=== PATIENT | male | born 1990 | race Two or more races ===

== ENCOUNTER 2021-03-10 10:29 | Inpatient (IN) | payer OTHER ==
[2021-03-10 11:29] VITALS: BMI 22.2
[2021-03-10] MEDS ORDERED: ONDANSETRON *ODT* 4 MG TABLET SL PRN (11:42)
[2021-03-10] MEDS ORDERED: cloNIDine HCL 0.1 MG TABLET PO PRN (11:42)
[2021-03-10] MEDS ORDERED: IBUPROFEN 400 MG TABLET (FP) PO PRN (11:42)
[2021-03-10] MEDS ORDERED: BISMUTH SUBSALICYLATE 524 MG/30 ML PO PRN (11:42)
[2021-03-10] MEDS ORDERED: MAG HYDROX/AL HYDROX/SIMETH 30 ML UNIT-DOSE CUP PO PRN (11:42)
[2021-03-10] MEDS ORDERED: methaDONE HCL 10 MG TABLET (FOR DETOX USE ONLY) PO ONE (11:42)
[2021-03-10] MEDS ORDERED: MAGNESIUM CITRATE 300 ML BOTTLE PO PRN (11:42)
[2021-03-10] MEDS ORDERED: MAGNESIUM HYDROX 2400MG/30ML ORAL SUSPENSION 30 ML CUP PO PRN (11:42)
[2021-03-10] MEDS ORDERED: ACETAMINOPHEN 325 MG TABLET (FP) PO PRN ×2 (11:42)
[2021-03-10] MEDS ORDERED: MENTHOL/PHENOL 1 EACH UD MM PRN (11:42)
[2021-03-10] MEDS ORDERED: NICOTINE 10 MG CARTRIDGE (INHALER) IH PRN (11:42)
[2021-03-10] MEDS ORDERED: hydrOXYzine PAMOATE 25 MG CAPSULE (FP) PO ONE (13:26)
[2021-03-10] MEDS ORDERED: methaDONE HCL 10 MG TABLET (FOR DETOX USE ONLY) ONE (13:26)
[2021-03-10] MEDS: hydrOXYzine PAMOATE 25 MG CAPSULE (FP) PO SCH ×3 (13:29→22:20)
[2021-03-10] MEDS ORDERED: METHOCARBAMOL 500 MG TABLET ONE (13:30)
[2021-03-10] MEDS: METHOCARBAMOL 500 MG TABLET PO PRN ×2 (13:30→22:22)
[2021-03-10] MEDS: diazePAM 5 MG TABLET PO PRN (15:49)
[2021-03-10] MEDS: [UNRECOGNIZED DRUG - OTHER] TP SCH ×2 (15:50→22:23)
[2021-03-10] MEDS: BETAMETHASONE DIP TP SCH ×2 (15:50→22:23)
[2021-03-10] MEDS: CLOTRIMAZOLE TP SCH ×2 (15:50→22:23)
[2021-03-10] MEDS: PATIENT'S OWN MEDICATION (NON-FORMULARY) (Doxycycline Hyclate [Doxycycline Hyclate] 100 MG PO SCH (22:20)
[2021-03-10] MEDS: MELATONIN 5 MG TABLETS PO SCH (22:20)
[2021-03-10] MEDS: THIAMINE HCL 100 MG TABLET (FP) PO SCH (22:22)
[2021-03-10] MEDS: [UNRECOGNIZED DRUG - OTHER] TP SCH (22:23)
[2021-03-10] MEDS: ETHANOL TP SCH (22:23)
[2021-03-11] MEDS: hydrOXYzine PAMOATE 25 MG CAPSULE (FP) PO SCH (05:51)
[2021-03-11] MEDS: CLOTRIMAZOLE TP SCH ×3 (05:53→23:30)
[2021-03-11] MEDS: [UNRECOGNIZED DRUG - OTHER] TP SCH ×3 (05:53→23:30)
[2021-03-11] MEDS: BETAMETHASONE DIP TP SCH ×3 (05:53→23:30)
[2021-03-11] MEDS ORDERED: methaDONE HCL 10 MG TABLET (FOR DETOX USE ONLY) ONE (09:50)
[2021-03-11] MEDS: PATIENT'S OWN MEDICATION (NON-FORMULARY) (Doxycycline Hyclate [Doxycycline Hyclate] 100 MG PO SCH ×2 (10:08→23:31)
[2021-03-11] MEDS: diazePAM 5 MG TABLET PO PRN ×3 (10:08→22:26)
[2021-03-11] MEDS: PRENATAL VITAMINS W/ FOLIC ACID TABLET (FP) PO SCH (10:08)
[2021-03-11] MEDS: ETHANOL TP SCH ×2 (10:08→23:30)
[2021-03-11] MEDS: [UNRECOGNIZED DRUG - OTHER] TP SCH ×2 (10:08→23:30)
[2021-03-11] MEDS: METHOCARBAMOL 500 MG TABLET PO PRN ×2 (10:08→18:04)
[2021-03-11 13:17] LABS: HEMATOCRIT 42.3 % (35.4-49); HEMOGLOBIN 14.2 GM/dL (11.7-16.9); MCH 29.8 pg (25.7-33.7); MCHC 33.5 g/dl (32.0-35.9); MEAN CELL VOLUME 89.1 fl (80-96); MEAN PLT VOLUME 7.6 fl (7.5-11.1); PLATELET COUNT 354 10^3/uL (134-434); RBC 4.75 M/mm3 (4.00-5.60); RDW 13.7 % (11.9-15.9); WHITE BLOOD COUNT 8.8 K/mm3 (4.0-10.0)
[2021-03-11 13:27] LABS: ALBUMIN 2.8 g/dl (3.4-5.0); BLOOD UREA NITROGEN 8.9 mg/dL (7-18); CALCIUM 8.5 mg/dL (8.5-10.1)
[2021-03-11 13:32] LABS: BILIRUBIN,TOTAL 0.4 mg/dL (0.2-1); TOT PROT 7.3 g/dl (6.4-8.2)
[2021-03-11] MEDS: hydrOXYzine PAMOATE 25 MG CAPSULE (FP) PO PRN ×2 (18:04→22:27)
[2021-03-11] MEDS: THIAMINE HCL 100 MG TABLET (FP) PO SCH (22:27)
[2021-03-11] MEDS: MELATONIN 5 MG TABLETS PO SCH (23:31)
[2021-03-12] MEDS: BETAMETHASONE DIP TP SCH (06:32)
[2021-03-12] MEDS: [UNRECOGNIZED DRUG - OTHER] TP SCH (06:32)
[2021-03-12] MEDS: CLOTRIMAZOLE TP SCH (06:32)
[2021-03-12] MEDS ORDERED: methaDONE HCL 10 MG TABLET (FOR DETOX USE ONLY) PO ONE (10:00)
[2021-03-12] MEDS: PATIENT'S OWN MEDICATION (NON-FORMULARY) (Doxycycline Hyclate [Doxycycline Hyclate] 100 MG PO SCH (10:11)
[2021-03-12] MEDS: ETHANOL TP SCH (10:14)
[2021-03-12] MEDS: [UNRECOGNIZED DRUG - OTHER] TP SCH (10:14)
[2021-03-12] MEDS: PRENATAL VITAMINS W/ FOLIC ACID TABLET (FP) PO SCH (10:14)
[2021-03-12] MEDS: hydrOXYzine PAMOATE 25 MG CAPSULE (FP) PO PRN (13:07)
[2021-03-12] MEDS: METHOCARBAMOL 500 MG TABLET PO PRN (13:07)
[2021-03-12 13:10] VITALS: BP 123/73; PULSE 100; TEMP 96.9
[2021-03-14] MEDS ORDERED: methaDONE HCL 10 MG TABLET (FOR DETOX USE ONLY) PO ONE (10:00)
== END 2021-03-12 16:20 | disposition left against medical advice (07) | DRG 770 ==
LOC: YASAS 10:29 → UNDOADMIN 14:16 → Y6N 14:16 → Y3N 15:06
PROVIDERS: ADMIT Allergy & Immunology; ATTEND Allergy & Immunology
PROC: HZ2ZZZZ Detoxification Services for Substance Abuse Treatment (ICD-10-PCS; principal; 2021-03-10)
DX: F11.23 Opioid dependence with withdrawal (principal); F14.20 Cocaine dependence, uncomplicated; F17.210 Nicotine dependence, cigarettes, uncomplicated; F41.9 Anxiety disorder, unspecified; L98.8 Other specified disorders of the skin and subcutaneous tissue; L03.90 Cellulitis, unspecified
CPT/HCPCS: 36415; 80053; 85027; 86780; 93005; 93010; C9803; U0003; U0005